=== PATIENT | female | born 1960 | race African-American/Black ===

== ENCOUNTER 2021-10-13 09:56 | Emergency (ER) | payer OTHER | END 2021-10-13 12:29 | disposition home or self-care (01) | LOC: ER1 09:56 | DX: M25.562 Pain in left knee (principal); I10 Essential (primary) hypertension; F17.200 Nicotine dependence, unspecified, uncomplicated | CPT/HCPCS: 73564; 96372; 99283; J1885 ==

== ENCOUNTER 2022-01-28 09:09 | Emergency (ER) | payer OTHER ==
[2022-01-28] MEDS ORDERED: ULTRAM50 MG PO (09:33)
== END 2022-01-28 10:16 | disposition home or self-care (01) ==
LOC: ER1 09:09
DX: T22.211A Burn of second degree of right forearm, initial encounter (principal); T22.231A Burn of second degree of right upper arm, initial encounter; Y93.G2 Activity, grilling and smoking food; X19.XXXA Contact with other heat and hot substances, initial encounter
CPT/HCPCS: 16020; 99283